=== PATIENT | male | born 1985 | race African-American/Black ===

== ENCOUNTER 2018-06-25 17:20 | Emergency (ER) | payer SELFPAY ==
[2018-06-25] MEDS ORDERED: HYDROcodone/Acetaminophen 5/325 mg Tablet ONE (19:11)
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
== END 2018-06-25 19:48 | disposition home or self-care (01) ==
LOC: ERS 17:20
DX: M54.6 Pain in thoracic spine (principal); M54.2 Cervicalgia; I10 Essential (primary) hypertension; F17.210 Nicotine dependence, cigarettes, uncomplicated; V69.9XXA Occupant (driver) (passenger) of heavy transport vehicle injured in unspecified traffic accident, initial encounter; Y92.410 Unspecified street and highway as the place of occurrence of the external cause
CPT/HCPCS: 70450; 72125; 72128; 72131

== ENCOUNTER 2020-09-02 12:31 | Emergency (ER) | payer OTHER, SELFPAY ==
[2020-09-02] MEDS ORDERED: predniSONE 20 MG TAB ONE (13:40)
== END 2020-09-02 13:55 | disposition home or self-care (01) ==
LOC: ERS 12:31
DX: J30.2 Other seasonal allergic rhinitis (principal); I10 Essential (primary) hypertension; F17.290 Nicotine dependence, other tobacco product, uncomplicated
CPT/HCPCS: 99283; J7512